=== PATIENT | male | born 1980 | race American Indian/Alaskan Native ===

== ENCOUNTER 2019-11-27 03:48 | Emergency (ER) | payer SELFPAY ==
[2019-11-27 04:25] VITALS: BP 164/93
[2019-11-27 04:41] LABS: Basophils % (Auto) 0.6 % (0.0-1.8); Eosinophils # (Auto) 0.1 K/mm3 (0.0-0.4); Eosinophils % (Auto) 1.3 % (0.0-4.3); Hematocrit 41.4 % (35.5-45.6); Hemoglobin 13.9 gm/dl (11.8-15.2); Lymphocytes # (Auto) 2.1 K/mm3 (1.2-5.4); Lymphocytes % (Auto) 31.2 % (13.4-35.0); Mean Corpuscular HGB Conc 34 % (32-34); Mean Corpuscular Volume 90 fl (84-94); Monocytes # (Auto) 0.8 K/mm3 (0.0-0.8); Monocytes % (Auto) 12.2 % (0.0-7.3); Platelet Count 245 K/mm3 (140-440); Red Blood Count 4.58 M/mm3 (3.65-5.03); Red Cell Distribution Width 14.2 % (13.2-15.2)
--- NOTE | 2019-11-27 04:49 | XRay Report ---
CHEST 1 VIEW INDICATION / CLINICAL INFORMATION: Chest Pain. COMPARISON: None available. FINDINGS: SUPPORT DEVICES: None. HEART / MEDIASTINUM: No significant abnormality. LUNGS / PLEURA: No significant pulmonary or pleural abnormality. No pneumothorax. ADDITIONAL FINDINGS: Mild thoracic scoliosis. IMPRESSION: 1. No acute findings. Signer Name: Willy Azul MD Signed: 11/27/2019 4:45 AM Workstation Name: [id number]
[2019-11-27] MEDS ORDERED: predniSONE 20 MG TAB PO ONE (04:55)
[2019-11-27] MEDS ORDERED: IPRATROPIUM/ALBUTEROL SULFATE 3 ML AMPUL.NEB IH ONE (04:55)
[2019-11-27] MEDS ORDERED: ASPIRIN 325 MG TAB PO ONE (04:55)
[2019-11-27] MEDS ORDERED: ACETAMINOPHEN 500 MG TAB PO ONE (04:55)
[2019-11-27 05:00] LABS: BUN/Creatinine Ratio 12; Blood Urea Nitrogen 11 mg/dL (9-20); Calcium 9.4 mg/dL (8.4-10.2); Hemolysis Index 9
--- NOTE | 2019-11-27 05:25 | Emergency Department Report ---
- General Chief Complaint: Chest Pain Stated Complaint: COUGH/WEAKNESS Source: patient Mode of arrival: Ambulatory Limitations: No Limitations - History of Present Illness Initial Comments: Patient is a 39-year-old -[place] male with past medical history of chronic sinusitis and tobacco smoking habit who presents to the ED with complaint of acute onset persistent nasal and sinus congestion, bilateral maxillary sinus pain with pressure, mild dry cough and chest tightness for the last 6 hours. 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 Patient states that he has not noticed anyone with any symptoms in his work place or at home. Patient denies fever, chills, nausea, vomiting, chest pain, shortness of breath, dizziness, syncope, sore throat, abdominal pain, change in vision, syncope, palpitations, dysuria, urinary frequency and urgency or hematuria. MD Complaint: cough, rhinorrhea, nasal congestion, sinus pain, other (Chest tightness) -: Sudden, hour(s) (6) Severity: mild Severity scale (0 -10): 3 Quality: dull, aching Consistency: constant Improves With: nothing Worsens With: nothing Context: sick contacts Associated Symptoms: denies other symptoms, myalgias, headache, rhinorrhea, nasal congestion, cough, chest pain (mild tightness). denies: fever, chills, diaphoresis, sore throat, stiff neck, shortness of breath, abdominal pain, nausea, vomiting, diarrhea, dysuria, rash, confusion, right sweats, epistaxis Treatments Prior to Arrival: none - Related Data Previous Rx's Medication Instructions Recorded Last Taken Type Acetaminophen [Tylenol] 500 mg PO Q6HR PRN #30 tablet 11/27/19 Unknown Rx Albuterol Sulfate [Proventil Hfa] 1 - 2 puff IH Q6H PRN #1 inh 11/27/19 Unknown Rx Azithromycin [Zithromax Z-CARA] 250 mg PO DAILY #6 tablet 11/27/19 Unknown Rx Benzonatate [Tessalon Perles] 100 mg PO Q8HR #30 capsule 11/27/19 Unknown Rx Cetirizine HCl [Zyrtec 10mg tab] 10 mg PO DAILY #30 tablet 11/27/19 Unknown Rx Hydroxychloroquine [Plaquenil] 200 mg PO DAILY #12 tablet 11/27/19 Unknown Rx Promethazine [Phenergan] 25 mg PO Q6HR PRN #24 tab 11/27/19 Unknown Rx Allergies Allergy/AdvReac Type Severity Reaction Status Date / Time No Known Allergies Allergy Unverified 02/18/16 13:53 ED Review of Systems ROS: Stated complaint: COUGH/WEAKNESS Other details as noted in HPI Constitutional: denies: chills, fever Eyes: denies: eye pain, eye discharge, vision change ENT: congestion. denies: ear pain, throat pain Respiratory: cough. denies: shortness of breath, wheezing Cardiovascular: chest pain (mild chest wall tightness). denies: palpitations Endocrine: no symptoms reported Gastrointestinal: denies: abdominal pain, nausea, diarrhea Genitourinary: denies: urgency, dysuria Musculoskeletal: denies: back pain, joint swelling, arthralgia Skin: denies: rash, lesions Neurological: denies: headache, weakness, paresthesias Psychiatric: denies: anxiety, depression Hematological/Lymphatic: denies: easy bleeding, easy bruising ED Past Medical Hx - Past Medical History Previous Medical History?: No - Surgical History Past Surgical History?: No - Social History Smoking Status: Current Some Day Smoker - Medications Home Medications: Home Medications Medication Instructions Recorded Confirmed Last Taken Type Acetaminophen [Tylenol] 500 mg PO Q6HR PRN #30 tablet 11/27/19 Unknown Rx Albuterol Sulfate [Proventil Hfa] 1 - 2 puff IH Q6H PRN #1 inh 11/27/19 Unknown Rx Azithromycin [Zithromax Z-CARA] 250 mg PO DAILY #6 tablet 11/27/19 Unknown Rx Benzonatate [Tessalon Perles] 100 mg PO Q8HR #30 capsule 11/27/19 Unknown Rx Cetirizine HCl [Zyrtec 10mg tab] 10 mg PO DAILY #30 tablet 11/27/19 Unknown Rx Hydroxychloroquine [Plaquenil] 200 mg PO DAILY #12 tablet 11/27/19 Unknown Rx Promethazine [Phenergan] 25 mg PO Q6HR PRN #24 tab 11/27/19 Unknown Rx ED Physical Exam - General Limitations: No Limitations General appearance: alert, in no apparent distress - Head Head exam: Present: atraumatic, normocephalic, normal inspection - Eye Eye exam: Present: normal appearance, PERRL, EOMI Pupils: Present: normal accommodation - ENT ENT exam: Present: normal orophraynx, mucous membranes moist, TM's normal bilaterally, normal external ear exam, other (Grossly congested nasal passages; palpable bilateral maxillary sinus tenderness) - Neck Neck exam: Present: normal inspection, full ROM. Absent: tenderness, meningismus, lymphadenopathy, thyromegaly - Respiratory Respiratory exam: Present: wheezes (Mildly diffuse wheezes throughout). Absent: respiratory distress, rales, rhonchi, chest wall tenderness, accessory muscle use, decreased breath sounds, prolonged expiratory - Cardiovascular Cardiovascular Exam: Present: normal rhythm, tachycardia, normal heart sounds. Absent: systolic murmur, diastolic murmur, rubs, gallop - GI/Abdominal GI/Abdominal exam: Present: soft, normal bowel sounds. Absent: tenderness, guarding, hyperactive bowel sounds, hypoactive bowel sounds, organomegaly - Extremities Exam Extremities exam: Present: normal inspection, full ROM, normal capillary refill - Back Exam Back exam: Present: normal inspection, full ROM. Absent: tenderness, CVA tenderness (R), CVA tenderness (L), muscle spasm, paraspinal tenderness - Neurological Exam Neurological exam: Present: alert, oriented X3, CN II-XII intact, normal gait, reflexes normal - Psychiatric Psychiatric exam: Present: normal affect, normal mood - Skin Skin exam: Present: warm, dry, intact, normal color. Absent: rash ED Course Vital Signs 11/27/19 11/27/19 03:53 06:22 Temperature 98.9 F Pulse Rate 109 H 84 Respiratory 20 17 Rate Blood Pressure 164/93 O2 Sat by Pulse 97 98 Oximetry ED Medical Decision Making - Lab Data Result diagrams: 11/27/19 04:19 11/27/19 04:19 - EKG Data EKG shows normal: sinus rhythm Rate: tachycardia - EKG Data Interpretation: normal EKG 11/27/19 05:44 The EKG shows sinus tachycardia with a ventricular rate of 101 bpm, with no ST or T wave abnormalities. - Radiology Data Radiology results: report reviewed, image reviewed Findings [facility] [address] [place] [address] XRay Report Signed Patient: MCKENNA MATA MR#: [id number] : 1980 Acct:[id number] Age/Sex: 39 / M ADM Date: 11/27/19 Loc: ED Attending Dr: Ordering Physician: Chacha Leija MD Date of Service: 11/27/19 Procedure(s): XR chest 1V ap Accession Number(s): [id number] cc: Chacha Leija MD Fluoro Time In Minutes: CHEST 1 VIEW INDICATION / CLINICAL INFORMATION: Chest Pain. COMPARISON: None available. FINDINGS: SUPPORT DEVICES: None. HEART / MEDIASTINUM: No significant abnormality. LUNGS / PLEURA: No significant pulmonary or pleural abnormality. No pneumothorax. ADDITIONAL FINDINGS: Mild thoracic scoliosis. IMPRESSION: 1. No acute findings. Signer Name: Willy Azul MD Signed: 11/27/2019 4:45 AM Workstation Name: [id number] Transcribed By: NINFA Dictated By: Willy Azul MD Electronically Authenticated By: Willy Azul MD Signed Date/Time: 11/27/19444 DD/ 3 TD/TT: - Medical Decision Making is a 39-year-old -[place] male with past medical history of chronic sinusitis and tobacco smoking habit who presents to the ED with complaint of acute onset persistent nasal and sinus congestion, bilateral maxillary sinus pain with pressure, mild dry cough and chest tightness for the last 6 hours. 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 Patient states that he has not noticed anyone with any symptoms in his work place or at home. In the ED, patient is alert and oriented x3 and is not in distress but anxious, afebrile and tachycardic in triage. Patient was treated in the ED for pain, and also received DuoNeb treatment in the ED for wheezing. Patient also received oral prednisone in the ED. Chest x-ray shows no acute cardiopulmonary abnormalities or pneumonitis. The EKG shows sinus tachycardia with ventricular rate of [address] or T wave abnormalities. Lab test results show AST of 66, ALT of 72, and LDH of 206, and hyperglycemia of 123 mg/dL and negative influenza test. Based on the patient's history and physical exam findings as well as lab test results, patient is suspected to have been exposed to Covid-19. Appropriate forms for the public health department was filled, and a copy was placed in the patient's chart. Patient was discharged home on medications and advised to self quarantine for 14 days. Patient was however advised to return to the ED immediately if symptoms get worse. - Differential Diagnosis Pneumonia; URI; Sinusitis; COVID-19; Bronchitis; CAD Critical care attestation.: If time is entered above; I have spent that time in minutes in the direct care of this critically ill patient, excluding procedure time. ED Disposition Clinical Impression: Acute upper respiratory infection, Acute recurrent maxillary sinusitis, Suspected COVID-19 virus infection Acute bronchitis Qualifiers: Bronchitis organism: other organism Qualified Code(s): J20.8 - Acute bronchitis due to other specified organisms Disposition: DC- TO HOME OR SELFCARE Is pt being admited?: No Does the pt Need Aspirin: No Condition: Stable Instructions: Sinusitis (ED), Upper Respiratory Infection (ED), Acute Bronchiti s (ED), COVID-19 Additional Instructions: Take medication with food, drink lots of fluids and follow-up with your primary care physician in 7 to 10 days for reevaluation. It is highly recommended that you consider self quarantine for suspected Covid-19 exposure for 14 days until December 13, 2019. Return to the ED immediately if your symptoms get worse. Prescriptions: Acetaminophen [Tylenol] 500 mg PO Q6HR PRN #30 tablet PRN Reason: Pain , Severe (7-10) Promethazine [Phenergan] 25 mg PO Q6HR PRN #24 tab PRN Reason: Nausea Hydroxychloroquine [Plaquenil] 200 mg PO DAILY #12 tablet Albuterol Sulfate [Proventil Hfa] 1 - 2 puff IH Q6H PRN #1 inh PRN Reason: Dyspnea Benzonatate [Tessalon Perles] 100 mg PO Q8HR #30 capsule Azithromycin [Zithromax Z-CARA] 250 mg PO DAILY #6 tablet Cetirizine HCl [Zyrtec 10mg tab] 10 mg PO DAILY #30 tablet Referrals: [facility] [Provider Group] - 7-10 days [facility] [Outside] - 7-10 days Forms: Work/School Release Form(ED) Time of Disposition: 06:37 Print Language: ARMENIAN
[2019-11-27 05:32] LABS: Alanine Aminotransferase 72 units/L (7-56); Albumin 4.6 g/dL (3.9-5)
[2019-11-27 05:33] LABS: Bilirubin,Direct < 0.2 mg/dL (0-0.2)
[2019-11-27] MEDS ORDERED: AZITHROMYCIN 250 MG TAB PO ONE (06:04)
[2019-11-27 06:37] LABS: C-Reactive Protein 0.2 mg/dL (0.00-1.30)
== END 2019-11-27 07:06 | disposition home or self-care (01) ==
LOC: ED 03:48
DX: J06.9 Acute upper respiratory infection, unspecified (principal); J01.01 Acute recurrent maxillary sinusitis; J20.9 Acute bronchitis, unspecified; F17.200 Nicotine dependence, unspecified, uncomplicated; Z20.828 Contact with and (suspected) exposure to other viral communicable diseases; Z79.2 Long term (current) use of antibiotics; Z79.899 Other long term (current) drug therapy
CPT/HCPCS: 36415; 71045; 80048; 80076; 82728; 83615; 84145; 84484; 85025; 86140; 87400; 93005; 93010; 94640; 99284; J7512

== ENCOUNTER 2021-08-22 00:02 | Emergency (ER) | payer SELFPAY ==
[2021-08-22] MEDS ORDERED: ONDANSETRON 4 MG ODT TAB PO ONE (00:53)
--- NOTE | 2021-08-22 01:23 | Emergency Department Report ---
HPI - General Chief Complaint: Upper Respiratory Infection PUI?: Yes Time Seen by Provider: 08/22/21 00:36 - HPI HPI: 40-year-old male with no known past medical history presents complaining of 1 week of upper respiratory infection symptoms including subjective fever, body aches, cough with phlegm production as well as decreased appetite and decreased sense of smell and taste. The symptoms came on gradually. He denies any as sociated headache, vision change, chest pain, shortness of breath, abdominal pain, nausea/vomiting, dysuria, back pain, focal weakness, sensory changes, or any other complaints. He is not vaccinated against COVID-19. ED Past Medical Hx - Past Medical History Previous Medical History?: No - Surgical History Past Surgical History?: No - Social History Smoking Status: Current Some Day Smoker - Medications Home Medications: Home Medications Medication Instructions Recorded Confirmed Last Taken Type Acetaminophen [Tylenol] 500 mg PO Q6HR PRN #30 tablet 11/27/19 Unknown Rx Albuterol Sulfate [Proventil Hfa] 1 - 2 puff IH Q6H PRN #1 inh 11/27/19 Unknown Rx Azithromycin [Zithromax Z-CARA] 250 mg PO DAILY #6 tablet 11/27/19 Unknown Rx Benzonatate [Tessalon Perles] 100 mg PO Q8HR #30 capsule 11/27/19 Unknown Rx Cetirizine HCl [Zyrtec 10mg tab] 10 mg PO DAILY #30 tablet 11/27/19 Unknown Rx Hydroxychloroquine [Plaquenil] 200 mg PO DAILY #12 tablet 11/27/19 Unknown Rx Promethazine [Phenergan] 25 mg PO Q6HR PRN #24 tab 11/27/19 Unknown Rx Acetaminophen/Codeine [Tylenol 1 tab PO Q6H PRN #15 tab 05/13/20 Unknown Rx /Codeine # 3 tab] Ibuprofen [Motrin 600 MG tab] 600 mg PO Q8H PRN #30 tablet 05/13/20 Unknown Rx Benzonatate [Tessalon Perles] 100 mg PO Q8HR PRN #20 capsule 08/22/21 Unknown Rx Ondansetron [Zofran Odt] 4 mg PO Q8H PRN #15 tab.rapdis 08/22/21 Unknown Rx ED Review of Systems ROS: Stated complaint: BODY ACHES Other details as noted in HPI Constitutional: fever, malaise, weakness Eyes: denies: eye pain, vision change ENT: congestion. denies: throat pain Respiratory: cough. denies: shortness of breath Cardiovascular: denies: chest pain, palpitations, syncope Gastrointestinal: other (dectreased appetite). denies: abdominal pain, nausea, vomiting Genitourinary: denies: dysuria, frequency Musculoskeletal: myalgia. denies: back pain, arthralgia Skin: denies: rash, lesions Neurological: denies: headache, weakness, numbness Hematological/Lymphatic: denies: easy bleeding Physical Exam - Physical Exam Vital Signs: Vital Signs 08/22/21 00:02 Temperature 99.4 F Pulse Rate 88 Respiratory 18 Rate Blood Pressure 126/79 [Right] O2 Sat by Pulse 94 Oximetry Physical Exam: GENERAL: Well developed and well nourished. No acute distress HEAD: Normocephalic. No obvious signs of trauma. ENT: Very dry mucous membranes. EYES: Extraocular movements are intact. Pupils are equal round and reactive to light bilaterally NECK: Supple. Full ROM is intact. Trachea is midline. LUNGS: Nonlabored breathing. Equal chest rise bilaterally. Clear to auscultation bilaterally. CARDIOVASCULAR: Regular rate and rhythm. No murmurs or rubs. VASCULAR: Cap refill < 2 seconds ABDOMEN: Abdomen is soft and nondistended. There is no significant tenderness, guarding or rebound. SKIN: Skin is warm and dry NEURO: Patient is awake, alert, and oriented. journeyman pipe welder II-XII grossly intact. No focal deficits. Normal motor and sensory exam throughout. Normal speech. MUSCULOSKELETAL: No obvious deformities. No significant tenderness. Normal ROM throughout. BACK/SPINE: No costovertebral angle tenderness. ED Course Vital Signs 08/22/21 00:02 Temperature 99.4 F Pulse Rate 88 Respiratory 18 Rate Blood Pressure 126/79 [Right] O2 Sat by Pulse 94 Oximetry ED Medical Decision Making - Lab Data Result diagrams: 08/22/21 01:05 08/22/21 01:05 - Radiology Data Radiology results: report reviewed - Medical Decision Making 40-year-old male presenting with 1 week of URI symptoms as well as decreased appetite and productive cough. On initial evaluation he has a low-grade temp of 99.4. His normal heart rate and blood pressure. His oxygen saturation is in the mid 90s on room air. On physical examination the patient has very dry mucous membranes. Lungs are clear to auscultation. There is no abdominal tenderness. The remainder of the exam reveals no significant abnormalities. We spoke about the possibility of COVID-19 given his symptoms with decrease smell and taste. Given that he has had decreased appetite as well as fluid intake and appears to be very dehydrated I have ordered basic labs and a chest x-ray to assess for evidence of pneumonia. I have also ordered Zofran and p.o. challenge to ensure the patient is able to tolerate fluids by mouth. Chest x-ray reveals no acute abnormalities. Labs reveal leukopenia with white blood cell count of 3.6. No significant anemia. Kidney function is normal and there are no significant electrolyte abnormalities. The patient has tolerated p.o. I discussed with the patient my clinical suspicion for COVID-19. I also discussed with him the importance of drinking plenty of fluids. I recommended that he purchase a pulse oximeter and monitor his O2 saturation at home. I aishwarya mmended that he be tested and self isolate at home unless he obtains a negative COVID-19 test. This was discussed with the patient who expressed understanding and agreement with the plan of care. Critical care attestation.: If time is entered above; I have spent that time in minutes in the direct care of this critically ill patient, excluding procedure time. ED Disposition Clinical Impression: Upper respiratory infection, Suspected COVID-19 virus infection Disposition: 01 HOME / SELF CARE / HOMELESS Is pt being admited?: No Condition: Stable Instructions: COVID-19 Frequently Asked Questions, Upper Respiratory Infection, Adult, COVID-19, Viral Respiratory Infection Additional Instructions: Please purchase a pulse oximeter from any pharmacy. Measure your oxygen saturation and if it drops below 90% you should return to the emergency department immediately. Follow-up with a primary care doctor or return to the emergency department should you develop significantly worsening symptoms or new health concerns. Prescriptions: Benzonatate [Tessalon Perles] 100 mg PO Q8HR PRN #20 capsule PRN Reason: Cough Ondansetron [Zofran Odt] 4 mg PO Q8H PRN #15 tab.rapdis PRN Reason: Nausea Referrals: [facility] [place] [Provider Group] - 3-5 Days
--- NOTE | 2021-08-22 01:24 | XRay Report ---
CHEST 2 VIEWS INDICATION / CLINICAL INFORMATION: URI. Body aches, cough COMPARISON: 11/27/2019 FINDINGS: SUPPORT DEVICES: None. HEART / MEDIASTINUM: No significant abnormality. LUNGS / PLEURA: No significant pulmonary or pleural abnormality. No pneumothorax. ADDITIONAL FINDINGS: Mild/moderate scoliosis of the thoracic spine, convex to the patient's right. IMPRESSION: 1. No acute pulmonary disease. No interval change. Signer Name: Fernanda Ruvalcaba MD Signed: 08/22/2021 1:19 AM Workstation Name: [id number]
[2021-08-22 01:26] LABS: Basophils % (Auto) 0.4 % (0.0-1.8); Eosinophils % (Auto) 0.4 % (0.0-4.3); Hematocrit 42.4 % (35.5-45.6); Hemoglobin 13.8 gm/dl (11.8-15.2); Lymphocytes # (Auto) 1.4 K/mm3 (1.2-5.4); Lymphocytes % (Auto) 38.3 % (13.4-35.0); Mean Corpuscular HGB Conc 32 % (32-34); Mean Corpuscular Volume 90 fl (84-94); Monocytes # (Auto) 0.5 K/mm3 (0.0-0.8); Monocytes % (Auto) 13.7 % (0.0-7.3); Platelet Count 189 K/mm3 (140-440); Red Blood Count 4.73 M/mm3 (3.65-5.03); Red Cell Distribution Width 13.8 % (13.2-15.2)
[2021-08-22 01:34] LABS: Alanine Aminotransferase 39 units/L (7-56); Albumin 4.1 g/dL (3.9-5); BUN/Creatinine Ratio 11; Blood Urea Nitrogen 10 mg/dL (9-20); Calcium 8.3 mg/dL (8.4-10.2); Hemolysis Index 11
[2021-08-22 01:35] LABS: Bilirubin,Direct < 0.2 mg/dL (0-0.2)
[2021-08-22 02:41] VITALS: BP 151/94
== END 2021-08-22 02:35 | disposition home or self-care (01) ==
LOC: ED 00:02
DX: J06.9 Acute upper respiratory infection, unspecified (principal); Z20.822 Contact with and (suspected) exposure to COVID-19; F17.200 Nicotine dependence, unspecified, uncomplicated
CPT/HCPCS: 36415; 71046; 80048; 80076; 85025; 99283; J3490; Q0162